=== PATIENT | male | born 2000 | race Caucasian/White ===

== ENCOUNTER 2021-03-05 19:14 | Emergency (ER) | payer OTHER ==
[~2021-03-05 19:14] MED LIST: DIAZEPAM 5MG TAB5 MG PO; PRILOSEC20 MG PO; ZOFRAN4 MG SL
[2021-03-05 19:45] LABS: BASOPHIL 0.5 % (0-2); EOSINOPHIL 0.3 % (0-5); HCT 45.9 % (42.0-52.0); HGB 15.1 g/dl (13.2-18.0); LYMPHOCYTE 20.4 % (15-48); MCH 29.4 pg (25.0-31.0); MCHC 32.9 g/dL (32.0-36.0); MCV 89.5 fL (78.0-100.0); MONOCYTE 6.4 % (0-12); MPV 8.8 fL (6.0-9.5); NEUTROPHIL 71.9 % (41-80); NRBC 0; PLT 236 K/uL (150-400); RBC 5.13 M/uL (4.70-6.00); RDW 12.2 % (11.5-14.0); WBC 7.8 K/uL (4.0-10.5)
[2021-03-05 20:03] LABS: ALBUMIN 4.5 g/dL (3.4-5.0); BILIRUBIN - TOTAL 0.3 mg/dL (0.2-1.0); BUN/CREAT RATIO (CALC) 12.4 RATIO; CREATININE 0.97 mg/dL (0.67-1.17); GLOBULIN (CALCULATION) 2.9 g/dL; POTASSIUM 3.7 mmol/L (3.5-5.1); TOTAL PROTEIN 7.4 g/dL (6.4-8.2)
[2021-03-05] MEDS ORDERED: DIASTAT2.5 MG PR (21:56)
== END 2021-03-05 22:25 | disposition home or self-care (01) ==
LOC: FER 19:14
PROVIDERS: Emergency Medicine
DX: G40.909 Epilepsy, unspecified, not intractable, without status epilepticus (principal); G91.9 Hydrocephalus, unspecified
CPT/HCPCS: 36415; 70450; 70490; 71045; 74018; 80053; 85025

== ENCOUNTER 2021-09-02 02:06 | Emergency (ER) | payer OTHER ==
[~2021-09-02 02:06] MED LIST changes: +DIASTAT2.5 MG PR
[2021-09-02 02:45] LABS: ALBUMIN 4.2 g/dL (3.4-5.0); ALKALINE PHOSHATASE 101 U/L (46-116); ALT 22 U/L (16-63); AST 14 U/L (15-37); BILIRUBIN - TOTAL 0.1 mg/dL (0.2-1.0); BUN 5 mg/dL (7-18); CHLORIDE 104 mmol/L (98-107); CO2 (BICARBONATE) 28 mmol/L (21-32); GLOBULIN (CALCULATION) 2.9 g/dL; GLUCOSE 143 mg/dL (74-106); POTASSIUM 3.2 mmol/L (3.5-5.1); TOTAL PROTEIN 7.1 g/dL (6.4-8.2)
[2021-09-02 02:53] LABS: BASOPHIL 0.5 % (0-2); EOSINOPHIL 1.3 % (0-5); HCT 42.1 % (42.0-52.0); HGB 14.3 g/dl (13.2-18.0); LYMPHOCYTE 47.9 % (15-48); MCH 29.7 pg (25.0-31.0); MCV 87.5 fL (78.0-100.0); MONOCYTE 7.8 % (0-12); MPV 8.9 fL (6.0-9.5); NEUTROPHIL 41.9 % (41-80); NRBC 0; PLT 244 K/uL (150-400); RBC 4.81 M/uL (4.70-6.00); RDW 12.5 % (11.5-14.0); WBC 6.3 K/uL (4.0-10.5)
[2021-09-02 11:54] LABS: BILIRUBIN NEGATIVE (NEGATIVE); BLOOD NEGATIVE Ery/uL (NEGATIVE); CLARITY CLEAR (CLEAR); COLOR YELLOW (YELLOW); GLUCOSE (U) NORMAL (NORMAL); LEUKOCYTES NEGATIVE Leu/uL (NEGATIVE); NITRITE NEGATIVE (NEGATIVE); PROTEIN NEGATIVE (NEGATIVE); UROBILINOGEN 0.2 mg/dL (0.2-1.0); pH 6.5 (5.0-9.0)
[2021-09-02 12:01] LABS: AMPHETAMINES NEGATIVE (NEGATIVE); BARBITURATES NEGATIVE (NEGATIVE); ECSTASY (MDMA) NEGATIVE (NEGATIVE); MARIJUANA (THC) POSITIVE (NEGATIVE); METHADONE NEGATIVE (NEGATIVE); OPIATES NEGATIVE (NEGATIVE); OXYCODONE NEGATIVE (NEGATIVE)
[2021-09-02 14:38] LABS: BASOPHIL 0.2 % (0-2); EOSINOPHIL 0.1 % (0-5); HCT 39.4 % (42.0-52.0); HGB 12.9 g/dl (13.2-18.0); LYMPHOCYTE 12.8 % (15-48); MCH 29.1 pg (25.0-31.0); MCHC 32.7 g/dL (32.0-36.0); MCV 88.9 fL (78.0-100.0); MONOCYTE 6.5 % (0-12); MPV 8.8 fL (6.0-9.5); NEUTROPHIL 79.9 % (41-80); NRBC 0; PLT 192 K/uL (150-400); RBC 4.43 M/uL (4.70-6.00); RDW 12.5 % (11.5-14.0); WBC 9.9 K/uL (4.0-10.5)
[2021-09-02 14:43] LABS: ALBUMIN 3.5 g/dL (3.4-5.0); BILIRUBIN - TOTAL 0.3 mg/dL (0.2-1.0); BUN/CREAT RATIO (CALC) 5.3 RATIO; CREATININE 0.94 mg/dL (0.67-1.17); GLOBULIN (CALCULATION) 2.8 g/dL; POTASSIUM 4.4 mmol/L (3.5-5.1); TOTAL PROTEIN 6.3 g/dL (6.4-8.2)
== END 2021-09-02 06:25 | disposition other institution (70) ==
LOC: FER 02:06
PROVIDERS: Emergency Medicine
DX: G40.409 Other generalized epilepsy and epileptic syndromes, not intractable, without status epilepticus (principal); Z98.2 Presence of cerebrospinal fluid drainage device
CPT/HCPCS: 36415; 36600; 70450; 71045; 74018; 80053; 80305; 81003; 82803; 83605; 84145; 85025; 87040; 93005; G0480; J1953; J2060; J2270; J2405; J7030; J7040

== ENCOUNTER 2021-12-10 17:28 | Emergency (ER) | payer OTHER ==
[2021-12-10 19:20] LABS: BASOPHIL 0.4 % (0-2); EOSINOPHIL 0 % (0-5); HCT 44.5 % (42.0-52.0); HGB 15.6 g/dl (13.2-18.0); LYMPHOCYTE 14.9 % (15-48); MCH 29.9 pg (25.0-31.0); MCHC 35.1 g/dL (32.0-36.0); MCV 85.2 fL (78.0-100.0); MONOCYTE 7.8 % (0-12); MPV 8.9 fL (6.0-9.5); NEUTROPHIL 76.8 % (41-80); NRBC 0; PLT 279 K/uL (150-400); RBC 5.22 M/uL (4.70-6.00); RDW 12.2 % (11.5-14.0); WBC 7.9 K/uL (4.0-10.5)
[2021-12-10 20:02] LABS: ALBUMIN 4.4 g/dL (3.4-5.0); ALKALINE PHOSHATASE 97 U/L (46-116); ALT 13 U/L (16-63); AST 18 U/L (15-37); BILIRUBIN - TOTAL 0.4 mg/dL (0.2-1.0); BUN 10 mg/dL (7-18); BUN/CREAT RATIO (CALC) 9.7 RATIO; CHLORIDE 101 mmol/L (98-107); CO2 (BICARBONATE) 26 mmol/L (21-32); CREATININE 1.03 mg/dL (0.67-1.17); GLOBULIN (CALCULATION) 3.1 g/dL; GLUCOSE 110 mg/dL (74-106); POTASSIUM 3.4 mmol/L (3.5-5.1); TOTAL PROTEIN 7.5 g/dL (6.4-8.2)
[2021-12-10 20:12] LABS: BILIRUBIN NEGATIVE (NEGATIVE); BLOOD NEGATIVE Ery/uL (NEGATIVE); CLARITY CLEAR (CLEAR); COLOR YELLOW (YELLOW); GLUCOSE (U) TRACE mg/dL (NORMAL); LEUKOCYTES NEGATIVE Leu/uL (NEGATIVE); NITRITE NEGATIVE (NEGATIVE); PROTEIN NEGATIVE (NEGATIVE)
[2021-12-10 20:16] LABS: AMPHETAMINES NEGATIVE (NEGATIVE); BARBITURATES NEGATIVE (NEGATIVE); ECSTASY (MDMA) NEGATIVE (NEGATIVE); MARIJUANA (THC) NEGATIVE (NEGATIVE); METHADONE NEGATIVE (NEGATIVE); OPIATES NEGATIVE (NEGATIVE); OXYCODONE NEGATIVE (NEGATIVE)
[2021-12-10 20:17] LABS: ACETAMINOPHEN (TYLENOL) < 2.0 ug/mL (10.0-30.0)
== END 2021-12-11 02:30 | disposition other institution (70) ==
LOC: FER 17:28
PROVIDERS: Emergency Medicine
DX: R45.851 Suicidal ideations (principal); F17.200 Nicotine dependence, unspecified, uncomplicated; G91.9 Hydrocephalus, unspecified; Z20.822 Contact with and (suspected) exposure to COVID-19
CPT/HCPCS: 36415; 70450; 71045; 74018; 80053; 80305; 81003; 85025; G0480; U0002

== ENCOUNTER 2021-12-13 16:41 | Emergency (ER) | payer OTHER ==
[2021-12-13 17:36] LABS: BASOPHIL 0.7 % (0-2); EOSINOPHIL 1.1 % (0-5); HCT 42.4 % (42.0-52.0); MCH 30.1 pg (25.0-31.0); MCHC 35.4 g/dL (32.0-36.0); MPV 9.5 fL (6.0-9.5); NEUTROPHIL 55.8 % (41-80); NRBC 0; PLT 266 K/uL (150-400); RBC 4.99 M/uL (4.70-6.00); RDW 12.5 % (11.5-14.0); WBC 5.5 K/uL (4.0-10.5)
[2021-12-13 17:58] LABS: BILIRUBIN - TOTAL 0.3 mg/dL (0.2-1.0); BUN/CREAT RATIO (CALC) 13.2 RATIO; CREATININE 1.14 mg/dL (0.67-1.17); POTASSIUM 3.4 mmol/L (3.5-5.1)
== END 2021-12-13 21:58 | disposition home or self-care (01) ==
LOC: FER 16:41
PROVIDERS: Emergency Medicine
DX: R56.9 Unspecified convulsions (principal); Z98.2 Presence of cerebrospinal fluid drainage device; Z28.310 Unvaccinated for COVID-19
CPT/HCPCS: 36415; 70450; 71045; 80053; 85025; J2060